=== PATIENT | female | born 1980 | race Caucasian/White ===

== ENCOUNTER 2017-12-22 15:45 | Observation (INO) | payer BC, MEDICAID ==
[2017-12-22] MEDS ORDERED: Sodium Chloride 0.9% 2.5 ML Syringe FLUSH PRN (15:57)
[2017-12-22] MEDS ORDERED: Aspirin 81 MG Tab.Chew PO ONE (15:57)
[2017-12-22] MEDS ORDERED: Sodium Chloride 0.9% 10 ML Syringe FLUSH PRN (15:57)
--- NOTE | 2017-12-22 16:03 | EDM.PDOC ---
ED HPI GENERAL MEDICAL PROBLEM - General Chief Complaint: Chest Pain Stated Complaint: CHEST PAIN Time Seen by Provider: 12/22/17 15:49 - History of Present Illness INITIAL COMMENTS - FREE TEXT/NARRATIVE: HISTORY AND PHYSICAL: History of present illness: The patient is a 37-year-old female with a history of hypertension who follows at [facility] clinic and presents with complaints of sudden onset of midsternal chest pain that radiates to her left arm that started at 7:30 PM last evening, 20 hrs ago. The patient states that she was not doing anything strenuous and was just making dinner when it started and it was sudden in onset and her left arm felt very heavy and painful and she felt tingling in her feet. She no tingling in her left arm did not pass out or blacked out but did feel short of breath and has had intermittent nausea since this started. She's had no abdominal pain or vomiting no shortness of breath fevers chills or coughing since that time. The patient said it was constant all last night and she was able to sleep through the night without waking with chest pain. She woke this morning she still had it has been waxing and waning intensity. In the ED she states it's a 5/10. The patient has not taken any medication for the pain. She states compliance with her antihypertensive medications and she has newly diagnosed sleep apnea and was here at our hospital picking up her C Pap machine which she has not started yet. Patient has a history of a bilateral tubal ligation and IUD and is not on oral contraception. She has no leg pain or swelling. Patient smokes tobacco but denies any other social history and has no significant family history of heart disease or pulmonary disease but states that she does not know much about her biological father other than he is still alive. The patient tells nursing that she is concerned this is more stress and anxiety driven but she wanted to be checked out. She states she had a stress test about 7 or 8 years ago which was negative and it was performed at that time because she was having palpitations but not chest pain. Denies any recent trauma to her chest wall. She's been eating and drinking normally Review of systems: As per history of present illness and below otherwise all systems reviewed and negative. Past medical history: As per history of present illness and as reviewed below otherwise noncontributory. Surgical history: As per history of present illness and as reviewed below otherwise noncontributory. Social history: No reported history of drug or alcohol abuse. Family history: As per history of present illness and as reviewed below otherwise noncontributory. Physical exam: Gen.: Well-developed well-nourished overweight female who is nontoxic and speaking clearly in the ED. She moves easily without distress and vital signs are noted by me HEENT: Atraumatic, normocephalic, negative for conjunctival pallor or scleral icterus, mucous membranes moist, throat clear, neck supple, nontender, trachea midline. Lungs: Clear to auscultation, breath sounds equal bilaterally, chest nontender. Heart: S1S2, regular, negative for clicks, rubs, or JVD. Abdomen: Soft, nondistended, nontender. Negative for masses or hepatosplenomegaly. Negative for costovertebral tenderness. Pelvis: Stable nontender. Genitourinary: Deferred. Rectal: Deferred. Extremities: Atraumatic, negative for cords or calf pain. Neurovascular unremarkable. No pedal edema or leg asymmetry Neuro: Awake, alert, oriented. Cranial nerves II through XII unremarkable. Cerebellum unremarkable. Motor and sensory unremarkable throughout. Exam nonfocal. Skin: No diaphoresis normal turgor no evidence of any rashes or lesions Diagnostics: EKG CBC CMP INR troponin d-dimer chest x-ray Therapeutics: IV O2 monitor aspirin nitroglycerin sublingual, NTP Reevaluation--after 2 sublingual nitroglycerin the patient has no chest pain. We will pace half an inch of nitro paste and continue monitoring the patient and her testing results. 1755: The patient was made aware of all of her testing results immediately the conversation about my concerns about her presentation and her risk factors and risk stratification. The patient took some time to think about if she wanted to be observed in the hospital and did discuss all of tonight's events with her . At this point she is refusing admission and would prefer to go home and follow-up with her provider on Monday. She is aware of my concerns and the risks that she he is accepting by leaving the hospital and not being observed and she is willing to accept those. She was also made aware that she can return at any time. We will remove the Nitropaste and plan for discharge home and I will give her referrals to our clinic if she would like to go there Impression: Chest pain, refusing admission Definitive disposition and diagnosis as appropriate pending reevaluation and review of above. chest pain Pain Score (Numeric/FACES): 5 - Related Data Allergies Allergy/AdvReac Type Severity Reaction Status Date / Time latex Allergy Rash Verified 12/22/17 15:52 topiramate [From Topamax] AdvReac Hyperactivi Verified 12/22/17 15:52 ty zolpidem tartrate AdvReac Hallucinati Verified 12/22/17 15:52 [From Ambien] ons Home Meds: Home Meds Lisinopril 10 mg PO DAILY 12/07/16 [History] Thyroid,Pork [[place] Thyroid] 180 mg PO DAILY 12/07/16 [History] Past Medical History Other HEENT History: wears glasses Cardiovascular History: Reports: Hypertension Respiratory History: Reports: Asthma (mild, Ventolin once a week) Gastrointestinal History: Reports: Other (See Below) Other Gastrointestinal History: occasional heartburn Genitourinary History: Reports: Renal Calculus 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: Reports: Polycystic Ovaries, Musculoskeletal History: Reports: Arthritis, Fibromyalgia, Other (See Below) Neurological History: Reports: Other (See Below) Other Neuro History: states has herniated cervical disc Psychiatric History: Reports: Anxiety, Depression Endocrine/Metabolic History: Reports: Hypothyroidism, Obesity/BMI 30+ - Past Surgical History Female Surgical History: Reports: Section, LEEP, Tubal Ligation Social & Family History - Tobacco Use Smoking Status *Q: Current Every Day Smoker Packs/Tins Daily: 1 - Recreational Drug Use Recreational Drug Use: No ED ROS GENERAL - Review of Systems Review Of Systems: ROS reveals no pertinent complaints other than HPI. ED EXAM, GENERAL - Physical Exam Exam: See Below (See dictation) Course - Vital Signs Last Recorded V/S: Last Vital Signs Temp 36.4 C 12/22/17 15:53 Pulse 91 12/22/17 16:50 Resp 18 12/22/17 16:50 BP 138/88 12/22/17 16:50 Pulse Ox 95 12/22/17 16:50 - Orders/Labs/Meds Orders: Active Orders 24 hr Category Date Time Status Cardiac Monitoring [RC] . DIRECTED Care 12/22/17 15:55 Active EKG Documentation Completion [RC] STAT Care 12/22/17 15:55 Active Oxygen Therapy, ED [] ASDIRECTED Care 12/22/17 15:55 Active Pulse Oximetry [RC] ASDIRECTED Care 12/22/17 15:55 Active Nitroglycerin [Nitrostat] Med 12/22/17 15:57 Active 0.4 mg SL Q5M PRN Sodium Chloride 0.9% [Saline Flush] Med 12/22/17 15:57 Active 10 ml FLUSH ASDIRECTED PRN Sodium Chloride 0.9% [Saline Flush] Med 12/22/17 15:57 Active 2.5 ml FLUSH ASDIRECTED PRN Saline Lock Insert [OM.PC] Stat Oth 12/22/17 15:55 Ordered Medication Orders Nitroglycerin (Nitrostat) 0.4 mg SL Q5M PRN PRN Reason: Chest Pain Last Admin: 12/22/17 16:21 Dose: 0.4 mg Admin: 12/22/17 16:16 Dose: 0.4 mg Sodium Chloride (Saline Flush) 10 ml FLUSH ASDIRECTED PRN PRN Reason: Keep Vein Open Last Admin: 12/22/17 16:16 Dose: 10 ml Sodium Chloride (Saline Flush) 2.5 ml FLUSH ASDIRECTED PRN PRN Reason: Keep Vein Open Last Admin: 12/22/17 16:16 Dose: 2.5 ml Labs: Laboratory Tests 12/22/17 12/22/17 12/22/17 Range/Units 16:00 16:00 16:00 WBC 8.38 (4.0-11.0) K/uL RBC 4.92 (4.30-5.90) M/uL Hgb 15.3 (12.0-16.0) g/dL Hct 44.7 (36.0-46.0) % MCV 90.9 (80.0-98.0) fL MCH 31.1 (27.0-32.0) pg MCHC 34.2 (31.0-37.0) g/dL RDW Std Deviation 45.1 (28.0-62.0) fl RDW Coeff of Jeremias 14 (11.0-15.0) % Plt Count 259 (150-400) K/uL MPV 10.60 (7.40-12.00) fL Neut % (Auto) 58.5 (48.0-80.0) % Lymph % (Auto) 30.0 (16.0-40.0) % [place] % (Auto) 7.3 (0.0-15.0) % Eos % (Auto) 3.7 (0.0-7.0) % Baso % (Auto) 0.5 (0.0-1.5) % Neut # (Auto) 4.9 (1.4-5.7) K/uL Lymph # (Auto) 2.5 H (0.6-2.4) K/uL [place] # (Auto) 0.6 (0.0-0.8) K/uL Eos # (Auto) 0.3 (0.0-0.7) K/uL Baso # (Auto) 0.0 (0.0-0.1) K/uL Nucleated RBC % 0.0 /100WBC Nucleated RBCs # 0 K/uL INR D-Dimer, Quantitative 0.27 (0.0-0.52) mg/LFEU Sodium 139 (136-145) mmol/L Potassium 4.0 (3.5-5.1) mmol/L Chloride 104 (98-107) mmol/L Carbon Dioxide 26.7 (21.0-32.0) mmol/L BUN 13 (7.0-18.0) mg/dL Creatinine 0.9 (0.6-1.0) mg/dL Est Cr Clr Drug Dosing 97.80 mL/min Estimated GFR (MDRD) > 60.0 ml/min Glucose 103 (74-106) mg/dL Calcium 9.1 (8.5-10.1) mg/dL Total Bilirubin 0.4 (0.2-1.0) mg/dL AST 29 (15-37) U/L ALT 65 H (14-63) U/L Alkaline Phosphatase 72 (46-116) U/L Troponin I < 0.050 (0.000-0.056) ng/mL Total Protein 7.7 (6.4-8.2) g/dL Albumin 3.9 (3.4-5.0) g/dL Globulin 3.8 H (2.0-3.5) g/dL Albumin/Globulin Ratio 1.0 L (1.3-2.8) 12/22/17 Range/Units 16:00 WBC (4.0-11.0) K/uL RBC (4.30-5.90) M/uL Hgb (12.0-16.0) g/dL Hct (36.0-46.0) % MCV (80.0-98.0) fL MCH (27.0-32.0) pg MCHC (31.0-37.0) g/dL RDW Std Deviation (28.0-62.0) fl RDW Coeff of Jeremias (11.0-15.0) % Plt Count (150-400) K/uL MPV (7.40-12.00) fL Neut % (Auto) (48.0-80.0) % Lymph % (Auto) (16.0-40.0) % Luna % (Auto) (0.0-15.0) % Eos % (Auto) (0.0-7.0) % Baso % (Auto) (0.0-1.5) % Neut # (Auto) (1.4-5.7) K/uL Lymph # (Auto) (0.6-2.4) K/uL Luna # (Auto) (0.0-0.8) K/uL Eos # (Auto) (0.0-0.7) K/uL Baso # (Auto) (0.0-0.1) K/uL Nucleated RBC % /100WBC Nucleated RBCs # K/uL INR 0.94 D-Dimer, Quantitative (0.0-0.52) mg/LFEU Sodium (136-145) mmol/L Potassium (3.5-5.1) mmol/L Chloride (98-107) mmol/L Carbon Dioxide (21.0-32.0) mmol/L BUN (7.0-18.0) mg/dL Creatinine (0.6-1.0) mg/dL Est Cr Clr Drug Dosing mL/min Estimated GFR (MDRD) ml/min Glucose (74-106) mg/dL Calcium (8.5-10.1) mg/dL Total Bilirubin (0.2-1.0) mg/dL AST (15-37) U/L ALT (14-63) U/L Alkaline Phosphatase (46-116) U/L Troponin I (0.000-0.056) ng/mL Total Protein (6.4-8.2) g/dL Albumin (3.4-5.0) g/dL Globulin (2.0-3.5) g/dL Albumin/Globulin Ratio (1.3-2.8) Meds: Medications Generic Name Dose Route Start Last Admin Trade Name Freq PRN Reason Stop Dose Admin Nitroglycerin 0.4 mg 12/22/17 15:57 12/22/17 16:21 Nitrostat SL 0.4 mg Q5M PRN Administration Chest Pain Sodium Chloride 10 ml 12/22/17 15:57 12/22/17 16:16 Saline Flush FLUSH 10 ml ASDIRECTED PRN Administration Keep Vein Open Sodium Chloride 2.5 ml 12/22/17 15:57 12/22/17 16:16 Saline Flush FLUSH 2.5 ml ASDIRECTED PRN Administration Keep Vein Open Discontinued Medications Generic Name Dose Route Start Last Admin Trade Name Freq PRN Reason Stop Dose Admin Aspirin 324 mg 12/22/17 15:57 12/22/17 16:15 Aspirin PO 12/22/17 15:58 324 mg ONETIME ONE Administration Nitroglycerin 0.5 gm 12/22/17 16:29 12/22/17 16:46 Nitro-Bid 2% TOP 12/22/17 16:30 0.5 gm ONETIME ONE Administration Departure - Departure Time of Disposition: 18:01 Disposition: Home, Self-Care 01 Condition: Good Clinical Impression: Chest pain Qualifiers: Chest pain type: unspecified Qualified Code(s): R07.9 - Chest pain, unspecified - Discharge Information Referrals: PCP,None [Primary Care Provider] - Forms: ED Department Discharge Additional Instructions: The following information is given to patients seen in the emergency department who are being discharged to home. This information is to outline your options for follow-up care. We provide all patients seen in our emergency department with a follow-up referral. The need for follow-up, as well as the timing and circumstances, are variable depending upon the specifics of your emergency department visit. If you don't have a primary care physician on staff, we will provide you with a referral. We always advise you to contact your personal physician following an emergency department visit to inform them of the circumstance of the visit and for follow-up with them and/or the need for any referrals to a consulting specialist. The emergency department will also refer you to a specialist when appropriate. This referral assures that you have the opportunity for followup care with a specialist. All of these measure are taken in an effort to provide you with optimal care, which includes your followup. Under all circumstances we always encourage you to contact your private physician who remains a resource for coordinating your care. When calling for followup care, please make the office aware that this follow-up is from your recent emergency room visit. If for any reason you are refused follow-up, please contact the [facility] emergency department at and ask to speak to the emergency department charge nurse. [facility]- [place] [address] Please take an aspirin 325 mg every day and to follow-up with the clinic. Please call and connect with one of our clinic providers on Monday to be seen in the clinic or with your provider on Monday for further care and evaluation and please return to ER as needed and as discussed. If you change your mind and would like to be admitted for these symptoms you can always return here. - My Orders Last 24 Hours: My Active Orders 12/22/17 15:55 Cardiac Monitoring [RC] . DIRECTED EKG Documentation Completion [RC] STAT Oxygen Therapy, ED [RC] ASDIRECTED Pulse Oximetry [RC] ASDIRECTED Saline Lock Insert [OM.PC] Stat 12/22/17 15:57 Nitroglycerin [Nitrostat] 0.4 mg SL Q5M PRN Sodium Chloride 0.9% [Saline Flush] 10 ml FLUSH ASDIRECTED PRN Sodium Chloride 0.9% [Saline Flush] 2.5 ml FLUSH ASDIRECTED PRN - Assessment/Plan Last 24 Hours: My Active Orders 12/22/17 15:55 Cardiac Monitoring [RC] . DIRECTED EKG Documentation Completion [RC] STAT Oxygen Therapy, ED [RC] ASDIRECTED Pulse Oximetry [RC] ASDIRECTED Saline Lock Insert [OM.PC] Stat 12/22/17 15:57 Nitroglycerin [Nitrostat] 0.4 mg SL Q5M PRN Sodium Chloride 0.9% [Saline Flush] 10 ml FLUSH ASDIRECTED PRN Sodium Chloride 0.9% [Saline Flush] 2.5 ml FLUSH ASDIRECTED PRN
[2017-12-22] MEDS: Nitroglycerin 0.4 MG Tab.SL SL PRN ×2 (16:16→16:21)
--- NOTE | 2017-12-22 16:21 | CR ---
EXAMINATION: Portable chest radiograph. HISTORY: Shortness of breath. FINDINGS: The trachea is midline. The cardiomediastinal silhouette is within normal limits. No pulmonary infilt rates, effusions or pneumothorax. Osseous structures appear unremarkable. IMPRESSION: No acute cardiopulmonary process.
[2017-12-22] MEDS ORDERED: Nitroglycerin 2% Oint 1 GM UD Packet TOP ONE (16:29)
[2017-12-22 16:47] LABS: CHLORIDE,CL 104 mmol/L (98-107); SODIUM,NA 139 mmol/L (136-145)
[2017-12-22] MEDS ORDERED: Ondansetron 4 MG/2 ML SDV IVPUSH PRN (19:18)
[2017-12-22] MEDS ORDERED: Acetaminophen 325 MG Tab PO PRN (19:18)
--- NOTE | 2017-12-22 19:25 | PCM.HP ---
H&P History of Present Illness - General Admit Problem/Dx: Admission Diagnosis/Problem Admission Diagnosis/Problem Chest pain - History of Present Illness Initial Comments - Free Text/Narative: 37 yo female with pmh of hypertension, hypothyroidism who present with one day history of chest pain. The chest pain is a constant substernal pressure that radiates the left arm. It started 24 hours before coming to the ED. She denies any cough, shortness of breath, or lightheadedness. chest pain Pain Score (Numeric/FACES): 5 - Related Data Allergies/Adverse Reactions: Allergies Allergy/AdvReac Type Severity Reaction Status Date / Time latex Allergy Rash Verified 12/22/17 15:52 topiramate [From Topamax] AdvReac Hyperactivi Verified 12/22/17 15:52 ty zolpidem tartrate AdvReac Hallucinati Verified 12/22/17 15:52 [From Ambien] ons Home Medications: Home Meds Thyroid,Pork [[place] Thyroid] 180 mg PO DAILY 12/07/16 [History] Lisinopril 10 mg PO BID 30 Days #60 tablet 12/23/17 [Rx] traMADol [Ultram] 50 mg PO Q6H PRN tablet 12/23/17 [Rx] Past Medical History Other HEENT History: wears glasses Cardiovascular History: Reports: Hypertension Respiratory History: Reports: Asthma (mild, Ventolin once a week) Gastrointestinal History: Reports: Other (See Below) Other Gastrointestinal History: occasional heartburn Genitourinary History: Reports: Renal Calculus 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, Musculoskeletal History: Reports: Arthritis, Fibromyalgia, Other (See Below) Neurological History: Reports: Other (See Below) Other Neuro History: states has herniated cervical disc Psychiatric History: Reports: Anxiety, Depression Endocrine/Metabolic History: Reports: Hypothyroidism, Obesity/BMI 30+ - Past Surgical History Female Surgical History: Reports: Section, LEEP, Tubal Ligation Social & Family History - Tobacco Use Smoking Status *Q: Current Every Day Smoker Years of Tobacco use: 14 Packs/Tins Daily: 1 - Recreational Drug Use Recreational Drug Use: No H&P Review of Systems - Review of Systems: Review Of Systems: ROS reveals no pertinent complaints other than HPI. Exam - Exam Exam: See Below - Vital Signs Vital Signs: Last Vital Signs Temp 36.4 C 12/22/17 15:53 Pulse 91 12/22/17 16:50 Resp 18 12/22/17 16:50 BP 138/88 12/22/17 16:50 Pulse Ox 95 12/22/17 16:50 Weight: 122.47 kg - Exam General: Alert, Oriented HEENT: Mucosa Moist & [place] Neck: Supple, Trachea Midline. No: JVD Lungs: Clear to Auscultation, Normal Respiratory Effort Cardiovascular: Regular Rate, Regular Rhythm GI/Abdominal Exam: Soft, Non-Tender Extremities: Non-Tender, No Pedal Edema Skin: Warm, Dry, Intact - Patient Data Lab Results Last 24 hrs: Laboratory Results - last 24 hr 12/22/17 12/22/17 12/22/17 Range/Units 16:00 16:00 16:00 WBC 8.38 (4.0-11.0) K/uL RBC 4.92 (4.30-5.90) M/uL Hgb 15.3 (12.0-16.0) g/dL Hct 44.7 (36.0-46.0) % MCV 90.9 (80.0-98.0) fL MCH 31.1 (27.0-32.0) pg MCHC 34.2 (31.0-37.0) g/dL RDW Std Deviation 45.1 (28.0-62.0) fl RDW Coeff of Jeremias 14 (11.0-15.0) % Plt Count 259 (150-400) K/uL MPV 10.60 (7.40-12.00) fL Neut % (Auto) 58.5 (48.0-80.0) % Lymph % (Auto) 30.0 (16.0-40.0) % [place] % (Auto) 7.3 (0.0-15.0) % Eos % (Auto) 3.7 (0.0-7.0) % Baso % (Auto) 0.5 (0.0-1.5) % Neut # (Auto) 4.9 (1.4-5.7) K/uL Lymph # (Auto) 2.5 H (0.6-2.4) K/uL [place] # (Auto) 0.6 (0.0-0.8) K/uL Eos # (Auto) 0.3 (0.0-0.7) K/uL Baso # (Auto) 0.0 (0.0-0.1) K/uL Nucleated RBC % 0.0 /100WBC Nucleated RBCs # 0 K/uL INR D-Dimer, Quantitative 0.27 (0.0-0.52) mg/LFEU Sodium 139 (136-145) mmol/L Potassium 4.0 (3.5-5.1) mmol/L Chloride 104 (98-107) mmol/L Carbon Dioxide 26.7 (21.0-32.0) mmol/L BUN 13 (7.0-18.0) mg/dL Creatinine 0.9 (0.6-1.0) mg/dL Est Cr Clr Drug Dosing 97.80 mL/min Estimated GFR (MDRD) > 60.0 ml/min Glucose 103 (74-106) mg/dL Calcium 9.1 (8.5-10.1) mg/dL Total Bilirubin 0.4 (0.2-1.0) mg/dL AST 29 (15-37) U/L ALT 65 H (14-63) U/L Alkaline Phosphatase 72 (46-116) U/L Troponin I < 0.050 (0.000-0.056) ng/mL Total Protein 7.7 (6.4-8.2) g/dL Albumin 3.9 (3.4-5.0) g/dL Globulin 3.8 H (2.0-3.5) g/dL Albumin/Globulin Ratio 1.0 L (1.3-2.8) 12/22/17 Range/Units 16:00 WBC (4.0-11.0) K/uL RBC (4.30-5.90) M/uL Hgb (12.0-16.0) g/dL Hct (36.0-46.0) % MCV (80.0-98.0) fL MCH (27.0-32.0) pg MCHC (31.0-37.0) g/dL RDW Std Deviation (28.0-62.0) fl RDW Coeff of Jeremias (11.0-15.0) % Plt Count (150-400) K/uL MPV (7.40-12.00) fL Neut % (Auto) (48.0-80.0) % Lymph % (Auto) (16.0-40.0) % [place] % (Auto) (0.0-15.0) % Eos % (Auto) (0.0-7.0) % Baso % (Auto) (0.0-1.5) % Neut # (Auto) (1.4-5.7) K/uL Lymph # (Auto) (0.6-2.4) K/uL [place] # (Auto) (0.0-0.8) K/uL Eos # (Auto) (0.0-0.7) K/uL Baso # (Auto) (0.0-0.1) K/uL Nucleated RBC % /100WBC Nucleated RBCs # K/uL INR 0.94 D-Dimer, Quantitative (0.0-0.52) mg/LFEU Sodium (136-145) mmol/L Potassium (3.5-5.1) mmol/L Chloride (98-107) mmol/L Carbon Dioxide (21.0-32.0) mmol/L BUN (7.0-18.0) mg/dL Creatinine (0.6-1.0) mg/dL Est Cr Clr Drug Dosing mL/min Estimated GFR (MDRD) ml/min Glucose (74-106) mg/dL Calcium (8.5-10.1) mg/dL Total Bilirubin (0.2-1.0) mg/dL AST (15-37) U/L ALT (14-63) U/L Alkaline Phosphatase (46-116) U/L Troponin I (0.000-0.056) ng/mL Total Protein (6.4-8.2) g/dL Albumin (3.4-5.0) g/dL Globulin (2.0-3.5) g/dL Albumin/Globulin Ratio (1.3-2.8) Result Diagrams: 12/22/17 16:00 12/22/17 16:00 *Q Meaningful Use (ADM) - VTE *Q VTE Criteria *Q: - Stroke *Q Stroke Criteria *Q: - AMI *Q AMI Criteria *Q: Problem List Initiated/Reviewed/Updated: Yes Orders Last 24hrs: Active Orders 24 hr Category Date Time Status Patient Status [ADT] Stat ADT 12/22/17 18:12 Active Antiembolic Devices [RC] PER UNIT ROUTINE Care 12/22/17 19:20 Ordered Cardiac Monitoring [RC] . DIRECTED Care 12/22/17 15:55 Active EKG Documentation Completion [RC] STAT Care 12/22/17 15:55 Active Oxygen Therapy [RC] PRN Care 12/22/17 19:18 Ordered Oxygen Therapy, ED [RC] ASDIRECTED Care 12/22/17 15:55 Active Pulse Oximetry [RC] ASDIRECTED Care 12/22/17 15:55 Active Up ad [place] [RC] ASDIRECTED Care 12/22/17 19:18 Ordered VTE/DVT Education [RC] PER UNIT ROUTINE Care 12/22/17 19:18 Ordered Vital Signs [RC] Q4H Care 12/22/17 19:18 Ordered Regular Diet [DIET] Diet 12/22/17 Breakfast Ordered TROPONIN I [CHEM] Q6H Lab 12/22/17 23:59 Ordered TROPONIN I [CHEM] Q6H Lab 12/23/17 05:59 Ordered Acetaminophen [Tylenol] Med 12/22/17 19:18 Ordered 650 mg PO Q4H PRN Lisinopril [Prinivil] Med 12/22/17 19:30 Ordered 10 mg PO DAILY Nitroglycerin [Nitrostat] Med 12/22/17 15:57 Active 0.4 mg SL Q5M PRN Ondansetron [Zofran] Med 12/22/17 19:18 Ordered 4 mg IVPUSH Q4H PRN Sodium Chloride 0.9% [Saline Flush] Med 12/22/17 15:57 Active 10 ml FLUSH ASDIRECTED PRN Sodium Chloride 0.9% [Saline Flush] Med 12/22/17 15:57 Active 2.5 ml FLUSH ASDIRECTED PRN Thyroid,Pork [[place] Thyroid] Med 12/22/17 19:30 Ordered 180 mg PO DAILY Saline Lock Insert [OM.PC] Stat Oth 12/22/17 15:55 Ordered Sequential Compression Device [OM.PC] Per Unit Routine Oth 12/22/17 19:18 Ordered Resuscitation Status Routine Resus Stat 12/22/17 19:18 Ordered Medication Orders Nitroglycerin (Nitrostat) 0.4 mg SL Q5M PRN PRN Reason: Chest Pain Last Admin: 12/22/17 16:21 Dose: 0.4 mg Admin: 12/22/17 16:16 Dose: 0.4 mg Sodium Chloride (Saline Flush) 10 ml FLUSH ASDIRECTED PRN PRN Reason: Keep Vein Open Last Admin: 12/22/17 16:16 Dose: 10 ml Sodium Chloride (Saline Flush) 2.5 ml FLUSH ASDIRECTED PRN PRN Reason: Keep Vein Open Last Admin: 12/22/17 16:16 Dose: 2.5 ml Assessment/Plan Comment:: 37 yo female who presents with chest pain. We will observe overnight on telemetry.
[2017-12-22] MEDS ORDERED: traMADol 50 MG Tab PO PRN (20:24)
[2017-12-22] MEDS: Lisinopril 10 MG Tab PO SCH (20:39)
[2017-12-22] MEDS: THYROID PORK 180 MG PO SCH (22:47)
[2017-12-23] MEDS: THYROID PORK 180 MG PO SCH (10:13)
[2017-12-23] MEDS: Lisinopril 10 MG Tab PO SCH (10:22)
[2017-12-23 12:46] VITALS: BP 123/95
--- NOTE | 2017-12-23 14:54 | PCM.DCSUM1 ---
<Lee Gupta Z - Last Filed: 12/23/17 14:50> Discharge Summary - Hospital Course HPI Initial Comments: Discharge Summary Date of admission: 12/22/2017 Date of discharge: 12/23/2017 Admitting diagnosis: #1. Chest pain acute coronary syndrome rule out #2. History of hypertension and hypothyroidism #3. #4. #5. Discharge diagnoses: #1. ACS ruled out patient along having chest pain, troponins 3 negative #2. History of hypertension and hypothyroidism #3. #4. #5. Consultations: None Procedures: None Hospitalization course: Patient was admitted secondary to chest pain with acute coronary syndrome rule out, her troponins were negative 3, her chest pain had resolved by the morning. Patient was stating that she was having a headache. Her blood pressures were hypertensive throughout here overnight. As a result we have decided to increase the patient's lisinopril from 10 mg to 20 mg and have close follow-up with her primary care physician for proper assessment as well as a cardiac stress test to be done outpatient. Disposition on discharge: Home Condition on discharge: Stable Discharge medications: Levothyroxine, lisinopril 20 mg Follow-up instructions: Follow-up with PCP, follow-up with cardiac stress test outpatient. - Discharge Data Discharge Date: 12/23/17 Discharge Disposition: Home, Self-Care 01 Condition: Stable - Patient Instructions Diet: Heart Healthy Diet Activity: As Tolerated Driving: Do Not Drive Showering/Bathing: No Showering Notify Provider of: Fever, Increased Pain, Swelling and Redness, Nausea and/or Vomiting - Discharge Plan Prescriptions/Med Rec: Lisinopril 10 mg PO BID 30 Days #60 tablet Home Medications: Home Meds Thyroid,Pork [[place] Thyroid] 180 mg PO DAILY 12/07/16 [History] Lisinopril 10 mg PO BID 30 Days #60 tablet 12/23/17 [Rx] traMADol [Ultram] 50 mg PO Q6H PRN tablet 12/23/17 [Rx] Patient Handouts: Chest Wall Pain, [id number], Lisinopril tablets - Discharge Summary/Plan Comment DC Time >30 min.: No - Patient Data Vitals - Most Recent: Last Vital Signs Temp 36.4 C 12/23/17 12:00 Pulse 81 12/23/17 12:00 Resp 16 12/23/17 03:59 BP 123/95 H 12/23/17 12:00 Pulse Ox 93 L 12/23/17 12:00 Weight - Most Recent: 123.014 kg I&O - Last 24 hours: Intake & Output 12/22/17 12/23/17 12/23/17 22:59 06:59 14:59 Intake Total 200 500 Output Total 400 600 Balance -200 -100 Lab Results - Last 24 hrs: Laboratory Results - last 24 hr 12/23/17 12/23/17 Range/Units 00:00 06:09 Troponin I < 0.050 < 0.050 (0.000-0.056) ng/mL Med Orders - Current: Current Medications Discontinued Medications Acetaminophen (Tylenol) 650 mg PO Q4H PRN PRN Reason: Pain (Mild 1-3)/fever Last Admin: 12/22/17 19:31 Dose: 650 mg Aspirin (Aspirin) 324 mg PO ONETIME ONE Stop: 12/22/17 15:58 Last Admin: 12/22/17 16:15 Dose: 324 mg Lisinopril (Prinivil) 10 mg PO DAILY [facility] Last Admin: 12/23/17 10:22 Dose: Not Given Nitroglycerin (Nitrostat) 0.4 mg SL Q5M PRN PRN Reason: Chest Pain Last Admin: 12/22/17 16:21 Dose: 0.4 mg Nitroglycerin (Nitro-Bid 2%) 0.5 gm TOP ONETIME ONE Stop: 12/22/17 16:30 Last Admin: 12/22/17 16:46 Dose: 0.5 gm Non-Formulary Medication (Thyroid,Pork [[place] Thyroid]) 180 mg PO DAILY [facility] Last Admin: 12/23/17 10:13 Dose: Not Given Ondansetron HCl (Zofran) 4 mg IVPUSH Q4H PRN PRN Reason: Nausea Last Admin: 12/22/17 20:41 Dose: 4 mg Sodium Chloride (Saline Flush) 10 ml FLUSH ASDIRECTED PRN PRN Reason: Keep Vein Open Last Admin: 12/22/17 16:16 Dose: 10 ml Sodium Chloride (Saline Flush) 2.5 ml FLUSH ASDIRECTED PRN PRN Reason: Keep Vein Open Last Admin: 12/22/17 16:16 Dose: 2.5 ml Tramadol HCl (Ultram) 50 mg PO Q6H PRN PRN Reason: Headache/Pain Last Admin: 12/22/17 20:39 Dose: 50 mg *Q Meaningful Use (DIS) - VTE *Q VTE Criteria *Q: - Stroke *Q Stroke Criteria *Q: - AMI *Q AMI Criteria *Q: <Mukund Mendoza J - Last Filed: 12/27/17 11:13> - Patient Data Vitals - Most Recent: Last Vital Signs Temp 36.4 C 12/23/17 12:00 Pulse 81 12/23/17 12:00 Resp 16 12/23/17 03:59 BP 123/95 H 12/23/17 12:00 Pulse Ox 93 L 12/23/17 12:00 Med Orders - Current: Current Medications Discontinued Medications Acetaminophen (Tylenol) 650 mg PO Q4H PRN PRN Reason: Pain (Mild 1-3)/fever Last Admin: 12/22/17 19:31 Dose: 650 mg Aspirin (Aspirin) 324 mg PO ONETIME ONE Stop: 12/22/17 15:58 Last Admin: 12/22/17 16:15 Dose: 324 mg Lisinopril (Prinivil) 10 mg PO DAILY [facility] Last Admin: 12/23/17 10:22 Dose: Not Given Nitroglycerin (Nitrostat) 0.4 mg SL Q5M PRN PRN Reason: Chest Pain Last Admin: 12/22/17 16:21 Dose: 0.4 mg Nitroglycerin (Nitro-Bid 2%) 0.5 gm TOP ONETIME ONE Stop: 12/22/17 16:30 Last Admin: 12/22/17 16:46 Dose: 0.5 gm Non-Formulary Medication (Thyroid,Pork [[place] Thyroid]) 180 mg PO DAILY [facility] Last Admin: 12/23/17 10:13 Dose: Not Given Ondansetron HCl (Zofran) 4 mg IVPUSH Q4H PRN PRN Reason: Nausea Last Admin: 12/22/17 20:41 Dose: 4 mg Sodium Chloride (Saline Flush) 10 ml FLUSH ASDIRECTED PRN PRN Reason: Keep Vein Open Last Admin: 12/22/17 16:16 Dose: 10 ml Sodium Chloride (Saline Flush) 2.5 ml FLUSH ASDIRECTED PRN PRN Reason: Keep Vein Open Last Admin: 12/22/17 16:16 Dose: 2.5 ml Tramadol HCl (Ultram) 50 mg PO Q6H PRN PRN Reason: Headache/Pain Last Admin: 12/22/17 20:39 Dose: 50 mg *Q Meaningful Use (DIS) - VTE *Q VTE Criteria *Q: - Stroke *Q Stroke Criteria *Q: - AMI *Q AMI Criteria *Q: - Free Text/Narrative Note: I have examined the patient. I have discussed findings and treatment plan with the resident. I agree with the assessment and plan outlined in the following resident's note.
== END 2017-12-23 13:50 | disposition home or self-care (01) ==
LOC: MW.ED 15:45 → MW.MS 18:12
PROVIDERS: ADMIT Internal Medicine; ATTEND Internal Medicine
DX: R07.2 Precordial pain (principal); I10 Essential (primary) hypertension; E03.9 Hypothyroidism, unspecified; J45.909 Unspecified asthma, uncomplicated; M19.90 Unspecified osteoarthritis, unspecified site; F41.9 Anxiety disorder, unspecified; F32.9 Major depressive disorder, single episode, unspecified; E66.9 Obesity, unspecified; F17.210 Nicotine dependence, cigarettes, uncomplicated; Z98.51 Tubal ligation status; Z79.899 Other long term (current) drug therapy; Z91.040 Latex allergy status; Z88.8 Allergy status to other drugs, medicaments and biological substances; Z68.30 Body mass index [BMI] 30.0-30.9, adult
CPT/HCPCS: 36415; 71045; 80053; 84484; 85025; 85379; 85610; 93005; 99285; A9270; J2405; 96374; 99284; G0378